=== PATIENT | female | born 1990 | race Two or more races ===

== ENCOUNTER 2025-05-03 15:27 | Inpatient (IN) | payer MEDICAID, OTHER ==
[~2025-05-03] VITALS: Ht 157.5 cm; Wt 67.9 kg
--- NOTE | 2025-05-03 16:19 | ED.PDOC ---
General HPI Comments 34 y.o female with PMHx of kidney stones, presents to the ED for a chief complaint of right sided flank/back pain that started earlier today. Patient reports helping father out today with chores, went to eat and felt a sudden sharp, non radiating pain associated with diaphoresis nausea and vomiting. Patient reports previous similar pain d/t kidney stone diagnosis. She denies any fever, abdominal pain, hematuria or dysuria. Chief Complaint: Flank Pain Time Seen by MD: 16:06 Reviewed notes: Nurses Notes, Medications, Allergies Allergies: Coded Allergies: NO KNOWN ALLERGIES (Unverified , 05/03/25) Information Source: Patient Mode of Arrival: Ambulatory Severity: Moderate Timing: Hours Duration: Since onset Onset: Spontaneous Symptoms: None History of: Kidney stone Location: (R) Flank associated signs and symptoms: Flank Pain, Back Pain Past Medical History PAST MEDICAL HISTORY: Kidney Stones Surgical History: Denies all surgeries MARKETING OFFICER History: No Pertinent MARKETING OFFICER History Family History Family History: Reviewed,noncontributory to illness Social History Smoker: Non-Smoker Alcohol: Denies ETOH Use Drugs: Denies Drug Use Lives In: Home Constitutional: denies: chills, diaphoresis, fatigue, fever, malaise, sweats, weakness, others EENTM: denies: blurred vision, double vision, ear bleeding, ear discharge, ear drainage, ear pain, ear ringing, eye pain, eye redness, hearing loss, mouth pain, mouth swelling, nasal discharge, nose bleeding, nose congestion, nose pain, photophobia, tearing, throat pain, throat swelling, voice changes, others Respiratory: denies: cough, hemoptysis, orthopnea, SOB at rest, shortness of breath, SOB with excertion, stridor, wheezing, others Cardiovascular: denies: chest pain, dizzy spells, diaphoresis, Dyspnea on exert ion, edema, irregular heart beat, left arm pain, lightheadedness, palpitations, PND, syncope, others Gastrointestinal: denies: abdomen distended, abdominal pain, blood streaked bowels, constipated, diarrhea, dysphagia, difficulty swallowing, hematemesis, melena, nausea, poor appetite, poor fluid intake, rectal bleeding, rectal pain, vomiting, others Genitourinary: reports: flank pain; denies: abnormal vagina bleeding, burning, dyspareunia, dysuria, frequency, hematuria, incontinence, pain, , vagina discharge, urgency, others Neurological: denies: dizziness, fainting, headache, left sided numbness, left sided weakness, numbness, paresthesia, pre-existing deficit, right sided numbness, right sided weakness, seizure, speech problems, tingling, tremors, weakness, others Musculoskeletal: reports: back pain; denies: gout, joint pain, joint swelling, muscle pain, muscle stiffness, neck pain, others Integumetry: denies: bruises, change in color, change in hair/nails, dryness, laceration, lesions, lumps, rash, wounds, others Allergic/Immunocompromised: denies: Difficulty Healing, Frequent Infections, Hives, Itching, others Hematologic/Lymphatic: denies: anemia, blood clots, easy bleeding, easy bruising, swollen glands, others Endocrine: denies: excessive hunger, excessive sweating, excessive thirst, excessive urination, flushing, intolerance to cold, intolerance to heat, unexplained weight gain, unexplained weight loss, others Psychiatric: denies: anxiety, bipolar disorder, depression, hopeless, panic disorder, schizophrenia, sleepless, suicidal, others All Other Systems: Reviewed and Negative Physical Exam General Appearance: Severe Distress, Other (diaphoretic ) HEENT: Normal ENT Inspection, Pharynx Normal, TMs Normal Neck: Full Range of Motion, Non-Tender, Normal, Normal Inspection Respiratory: Chest Non-Tender, Lungs Clear, No Accessory Muscle Use, No Respiratory Distress, Normal Breath Sounds Cardiovascular: No Edema, No JVD, No Murmur, No Gallop, Normal Peripheral Pulses, Regular Rate/Rhythm Breast Exam: Deferred Gastrointestinal: No Organomegaly, Non Tender, No Pulsatile Mass, Normal Bowel Sounds, Soft Genitalia: Deferred Pelvic: Deferred Rectal: Deferred Extremities: Tender (right sided: back and flank ) Musculoskeletal : Location: Right Extremity Location: Back Apperance: Tenderness: Severe Neurologic: Alert, director of nurses registry II-XII nml as Tested, No Motor Deficits, Normal Affect, Normal Mood, No Sensory Deficits Cerebellar Function: Normal Reflexes: Normal Skin: Dry, Normal Color, Warm Lymphatic: No Adenopathy Was a procedure done? Was a procedure done?: No Differential Diagnosis Kidney stone (Female): Musculoskeletal pain, Ovarian torsion, Pyelonephritis, Renal failure, Strain, Urinary obstruction X-Ray, Labs, Meds, VS Vital Signs Date Time Temp Pulse Resp B/P (MAP) Pulse Ox O2 Delivery O2 Flow Rate FiO2 05/03/25 15:29 97.1 84 20 148/85 (106) 95 97.1 Lab Test 05/03/25 16:38 05/03/25 16:00 Range/Units White Blood Count 11.2 H 4.4-10.8 10^3/uL Red Blood Count 4.78 4.0-5.20 10^6/uL Hemoglobin 13.4 12.2-16.2 g/dL Hematocrit 40.4 36.0-46.0 % Mean Corpuscular Volume 84.5 80.0-100.0 fL Mean Corpuscular Hemoglobin 28.0 28.0-32.0 pg Mean Corpuscular Hemoglobin Concent 33.1 32.0-36.0 g/dL Red Cell Distribution Width 14.4 H 11.8-14.3 % Platelet Count 348 140-450 10^3/uL Mean Platelet Volume 8.6 6.9-10.8 fL Neutrophils (%) (Auto) 83.3 H 37.0-80.0 % Lymphocytes (%) (Auto) 10.7 10.0-50.0 % Monocytes (%) (Auto) 5.4 0.0-12.0 % Eosinophils (%) (Auto) 0.2 0.0-7.0 % Basophils (%) (Auto) 0.4 0.0-2.0 % Neutrophils # (Auto) 9.3 H 1.6-8.6 10 ^3/uL Lymphocytes # (Auto) 1.2 0.4-5.4 10 ^3/uL Monocytes # (Auto) 0.6 0-1.3 10 ^3/uL Eosinophils # (Auto) 0 0-0.8 10 ^3/uL Basophils # (Auto) 0 0-0.2 10 ^3/uL Nucleated Red Blood Cells 0.1 % Sodium Level Pending Potassium Level Pending Chloride Level Pending Carbon Dioxide Level Pending Anion Gap Pending Blood Urea Nitrogen Pending Creatinine Pending Glomerular Filtration Rate Calc Pending BUN/Creatinine Ratio Pending Serum Glucose Pending Calcium Level Pending Urine Color Pending Urine Clarity Pending Urine pH Pending Urine Specific [place] Pending Urine Protein Pending Urine Ketones Pending Urine Blood Pending Urine Nitrite Pending Urine Bilirubin Pending Urine Urobilinogen Pending Urine Leukocyte Esterase Pending Urine RBC Pending Urine Microscopic WBC Pending Urine Squamous Epithelial Cells Pending Urine Bacteria Pending Urine Glucose Pending Exam: CT CT AB PEL WO CON-NO ORAL OR IV History: right flank pain Comparison Study: None Technique: Multidetector spiral CT of the abdomen and pelvis was performed fr om lung bases to pubic symphysis. Imaging was performed without IV contrast. Axial, coronal and sagittal multiplanar reformats were obtained from the axial data set by the technologist. Radiation dose : Abdomen/Pelvis: CTDIvol 12 mGy, DLP 680 mGy*cm. Findings: Evaluation of solid organs is limited due to lack of intravenous contrast use. Lung Bases: No acute or significant lung base finding. Normal heart size. No pleural or pericardial effusion. Liver: The liver is normal in size. No focal lesions. Gallbladder and biliary Tree: Unremarkable Spleen: Unremarkable Pancreas: The pancreas is grossly normal in appearance. Adrenal Glands: Unremarkable Kidneys: Right kidney is enlarged. There is [id number] right hydronephrosis and hydroureter. No definite obstructing ureteral calculus identified. Left kidney appears unremarkable. Bladder: Grossly unremarkable for degree of distention. Bowel: The stomach is grossly normal in appearance. Small bowel and colon are normal in caliber and distribution. Normal appendix is visualized in the right lower quadrant without findings of appendicitis. Ascites: Trace free fluid in the pelvis could be physiologic. Lymphadenopathy: No mesenteric, retroperitoneal or periportal lymphadenopathy. Abdominal wall and Mesentery: Unremarkable. Vasculature: The visualized abdominal aorta is normal in size and caliber. Evaluation of abdominal and pelvic vessels is limited due to lack of intravenous contrast. Pelvic Organs: Unremarkable Musculoskeletal: No aggressive focal bony lesions, acute fractures or dislocation. IMPRESSION: 1. Abnormal appearance of the right kidney. Right kidney appears swollen with [id number] right hydronephrosis and hydroureter. No definite obstructing calculus identified. Consider pyelonephritis. Recommend further evaluation with CT urogram. Radiation optimization: All CT scans at this facility use at least one of these dose optimization techniques: Automated exposure control mA and/or kV adjustment per patient size (includes targeted exams where dose is matched to clinical indication) or iterative reconstruction. HS:Y X-Ray, Labs, Meds, VS Comment Imaging: X-rays and CT scans were reviewed and interpreted by this provider, concerns of the right kidney. Pending radiology review CT abdomen pelvis: IMPRESSION: 1. Abnormal appearance of the right kidney. Right kidney appears swollen with [id number] right hydronephrosis and hydroureter. No definite obstructing calculus identified. Consider pyelonephritis. Recommend further evaluation with CT urogram. Laboratory: Labs reviewed and interpreted by this provider. Elevated white count Patient has prior medical visits reviewed. Med reconciliation performed Vital signs reviewed Recommend admission for pyelonephritis, rule out obstruction Patient will be started on ceftriaxone 1 g IV Patient given morphine four Zofran four for pain control Time of 1ST Reevaluation: 17:00 Reevaluation 1ST: Unchanged Patient Education/Counseling: Diagnosis, Treatment, Prognosis Family Education/Counseling: No Family Present SEPSIS Sepsis Screen Physician Orders Basic Metabolic Panel (05/03/25 16:18) Urinalysis (05/03/25 16:18) Ct Ab Pel Wo Con-No Oral Or Iv (05/03/25 16:18) Morphine Sulfate Injection (05/03/25 17:00) Ondansetron Hcl (Zofran) (05/03/25 17:00) Ceftriaxone Ivpb Rocephin (05/03/25 17:00) Vital Signs Date Time Temp Pulse Resp B/P (MAP) Pulse Ox O2 Delivery O2 Flow Rate FiO2 05/03/25 15:29 97.1 84 20 148/85 (106) 95 97.1 Laboratory Tests Test 05/03/25 16:38 White Blood Count 11.2 10^3/uL (4.4-10.8) H Departure 1 Departure Time of Disposition: 17:01 Impression: Primary Impression: Pyelonephritis Disposition: 09 ADMITTED INPATIENT Condition: Fair Discharged With: Self Critical Care Note Critical Care Time?: No Stability Stability form required: No I personally scribed for AUDREY WADE CAREER EDUCATION TEACHER ([email or web address]) on 05/03/25 at 16:19. Electronically submitted by Liz Vernon ([facility]). I personally scribed for AUDREY WADE CAREER EDUCATION TEACHER ([email or web address]) on 05/03/25 at 16:59. Electronically submitted by Liz Vernon ([facility]). AUDREY WADE CAREER EDUCATION TEACHER May 03, 2025 16:19
[2025-05-03 16:53] LABS: Urine Bacteria None Seen /hpf (None Seen)
[2025-05-03 16:53] LABS: Basophils # (auto) 0 10 ^3/uL (0-0.2); Basophils % (auto) 0.4 % (0.0-2.0); Eosinophils # (auto) 0 10 ^3/uL (0-0.8); Eosinophils % (auto) 0.2 % (0.0-7.0); Hematocrit 40.4 % (36.0-46.0); Hemoglobin 13.4 g/dL (12.2-16.2); Lymphocytes # (auto) 1.2 10 ^3/uL (0.4-5.4); Lymphocytes % (auto) 10.7 % (10.0-50.0); Mean Corpuscular Hgb Conc. 33.1 g/dL (32.0-36.0); Mean Corpuscular Volume 84.5 fL (80.0-100.0); Monocytes # (auto) 0.6 10 ^3/uL (0-1.3); Monocytes % (auto) 5.4 % (0.0-12.0); Neutrophils # (auto) 9.3 10 ^3/uL (1.6-8.6); Neutrophils % (auto) 83.3 % (37.0-80.0); Nucleated Red Blood Cells % 0.1 %; Platelet Count (auto) 348 10^3/uL (140-450); Red Blood Cells 4.78 10^6/uL (4.0-5.20); Red Cell Distribution Width 14.4 % (11.8-14.3); White Blood Cell 11.2 10^3/uL (4.4-10.8)
--- NOTE | 2025-05-03 16:56 | DVH ---
Exam: CT CT AB PEL WO CON-NO ORAL OR IV History: right flank pain Comparison Study: None Technique: Multidetector spiral CT of the abdomen and pelvis was performed from lung bases to pubic symphysis. Imaging was performed without IV contrast. Axial, coronal and sagittal multiplanar reform ats were obtained from the axial data set by the technologist. Radiation dose : Abdomen/Pelvis: CTDIvol 12 mGy, DLP 680 mGy*cm. Findings: Evaluation of solid organs is limited due to lack of intravenous contrast use. Lung Bases: No acute or significant lung base finding. Normal heart size. No pleural or pericardial effusion. Liver: The liver is normal in size. No focal lesions. Gallbladder and biliary Tree: Unremarkable Spleen: Unremarkable Pancreas: The pancreas is grossly normal in appearance. Adrenal Glands: Unremarkable Kidneys: Right kidney is enlarged. There is [id number] right hydronephrosis and hydroureter. No definite obstructing ureteral calculus identified. Left kidney appears unremarkable. Bladder: Grossly unremarkable for degree of distention. Bowel: The stomach is grossly normal in appearance. Small bowel and colon are normal in caliber and d istribution. Normal appendix is visualized in the right lower quadrant without findings of appendicit is. Ascites: Trace free fluid in the pelvis could be physiologic. Lymphadenopathy: No mesenteric, retroperitoneal or periportal lymphadenopathy. Abdominal wall and Mesentery: Unremarkable. Vasculature: The visualized abdominal aorta is normal in size and caliber. Evaluation of abdominal a nd pelvic vessels is limited due to lack of intravenous contrast. Pelvic Organs: Unremarkable Musculoskeletal: No aggressive focal bony lesions, acute fractures or dislocation. IMPRESSION: 1. Abnormal appearance of the right kidney. Right kidney appears swollen with [id number]-[id number] right hydronephrosis and hydroureter. No definite obstructing calculus identified. Consider pyelonephritis . Recommend further evaluation with CT urogram. Radiation optimization: All CT scans at this facility use at least one of these dose optimization suman hniques: Automated exposure control mA and/or kV adjustment per patient size (includes targeted exams where dose is matched to clinical indication) or iterative reconstruction. HS:Y
[2025-05-03 17:00] LABS: Chloride 105 mmol/L (98-107); Sodium 142 mmol/L (136-145)
[2025-05-03] MEDS: MORPHINE SULFATE 4 MG/ML SYR/VIAL IV ONE (17:00)
[2025-05-03] MEDS: ONDANSETRON HCL 4 MG/2 ML VIAL IV ONE (17:00)
[2025-05-03 17:01] LABS: Anion Gap 11 (5-15); Carbon Dioxide 26 mmol/L (20-31)
[2025-05-03 17:02] LABS: Calcium 10.5 mg/dL (8.7-10.4); Potassium 3.5 mmol/L (3.5-5.1)
[2025-05-03 17:07] LABS: BUN/Creatinine Ratio 11.2 (10.0-20.0); Blood Urea Nitrogen 10 mg/dL (9-23); Glucose 116 mg/dL (74-106)
[2025-05-03 17:09] LABS: Urine Blood 3+ /uL (Negative); Urine Clarity Turbid (Clear); Urine Color Light-Orange (Yellow); Urine Mucus FEW (None Seen); Urine Protein, UAD 1+ (Negative); Urine Specific Gravity 1.025 (1.001-1.035); Urine Squamous Epithelial Cell FEW /hpf (<5); Urine Urobilinogen Normal (Negative); Urine WBC 23 /HPF (0-5)
[2025-05-03] MEDS: ONDANSETRON ODT 4 MG TAB PO ONE (17:38)
[2025-05-03] MEDS: KETOROLAC TROMETH 30 MG/ML 1ML VIAL IM ONE (17:38)
[2025-05-03] MEDS: cefTRIAXone 1GM/50ML D5W 50 ML IV ONE (19:26)
[2025-05-03 21:02] VITALS: PULSE 95; RESP 14; O2SAT 99
[2025-05-03] MEDS ORDERED: ONDANSETRON HCL 4 MG/2 ML VIAL IV PRN (22:00)
[2025-05-03] MEDS ORDERED: MORPHINE SULFATE INJ 2 MG/ml SYRG IV PRN (22:00)
[2025-05-03] MEDS: IBUPROFEN 600 MG TAB PO ONE (22:45)
[2025-05-03] MEDS: SODIUM CHLORIDE 0.9% 1,000 ML IV ONE (22:45)
--- NOTE | 2025-05-03 22:57 | DVH ---
INDICATION: Right CVA tenderness TECHNIQUE: Multiple real-time sonographic images of the kidneys and urinary bladder were obtained. COMPARISON: None FINDINGS: The right kidney measures 9.7 cm in length. The right renal echotexture, contour and cortical thickn ess are within normal limits. There is mild right hydronephrosis. The left kidney measures 8.7 cm in length. The left renal echotexture, contour, and cortical thicknes s are within normal limits. No hydronephrosis or large masses/calculi are seen. The urinary bladder is contracted. Prevoid residual measures 17.2 cc. IMPRESSION: 1. Mild right hydronephrosis.
--- NOTE | 2025-05-03 23:45 | DVHHPRES ---
History of Present Illness Resident Creating Document: LUIS CARLOSJHON RESIDENT History of Present Illness This is a 34-year-old female with a past medical history of kidney stone presented to the ED with a chief complaint of severe abdominal pain. Patient originally from [facility] was visiting the [facility] and reported she was having right-sided lower abdominal pain which was radiating along the flank since the last few days which was xboa-[id number] in intensity and patient is currently on menstruation and she thought that the pain is likely because of the periods. Today when she started to drive back home to [facility], felt sudden onset severe pain starting from the suprapubic area radiating around the right flank to the right upper back. She had associated nausea and multiple episodes of vomiting following which she came to the hospital for further evaluation. Patient reports many years ago she had kidney stones does not exactly remember which kidney. Reports that in the last 2-3 days she has had to strain to urinate. Past medical history: None Past surgical history: None Social history: Patient denies smoking, alcohol, drug No home medications Review of Systems Review of Systems Seen and examined at the bedside Reports of rrrz-if-eqljnnhp right flank and right upper back pain Nausea or vomiting Allergies: Coded Allergies: NO KNOWN ALLERGIES (Unverified , 05/03/25) Medications Current Medications Medications Dose Ordered Sig/Mee Route Start Time Stop Time Status Last Admin Dose Admin Morphine Sulfate 2 mg Q6HPRN PRN IV 05/03/25 22:00 Ibuprofen 600 mg Q6HP PRN PO 05/04/25 04:00 Ondansetron HCl 4 mg Q6HPRN PRN IV 05/03/25 22:00 Ceftriaxone Sodium 50 ml @ 100 mls/hr DAILY@09 IV 05/04/25 09:00 Exam Vital Signs Vital Signs Date Time Temp Pulse Resp B/P (MAP) Pulse Ox O2 Delivery O2 Flow Rate FiO2 05/03/25 21:55 97.8 98 15 127/82 (97) 100 97.8 05/03/25 21:02 Room Air* 0 21 Exam Gen - no pallor, no icterus, no cyanosis, no clubbing, no LAD, no edema . Skin - Patients skin is warm and dry. HEENT - normocephalic, atraumatic, dry mucous membranes. Neck - full ROM, no LAD, no JVD Pulmonary - B/L equal breath sounds, no crackles, no wheezing, no stridor. cardiovascular - regular S1,S2 heard, no added sounds, no murmurs heard. peripheral pulses normal radial 2+, pedal 2+. capillary refill normal <2 secs. GI - soft abdomen with discomfort to deep palpation in the suprapubic area in the right flank area. Positive right CVA tenderness. no hepatospleenomegaly. Bowel sounds normoactive Neurological - Patient is A/O X 3. Bilateral upper extremity strength 5/5, bilateral lower extremity strength 5/5, no facial droop, normal speech, no tremor, no sensory deficiets. Labs/Xrays Labs Test 05/03/25 16:38 05/03/25 16:00 Range/Units White Blood Count 11.2 H 4.4-10.8 10^3/uL Red Blood Count 4.78 4.0-5.20 10^6/uL Hemoglobin 13.4 12.2-16.2 g/dL Hematocrit 40.4 36.0-46.0 % Mean Corpuscular Volume 84.5 80.0-100.0 fL Mean Corpuscular Hemoglobin 28.0 28.0-32.0 pg Mean Corpuscular Hemoglobin Concent 33.1 32.0-36.0 g/dL Red Cell Distribution Width 14.4 H 11.8-14.3 % Platelet Count 348 140-450 10^3/uL Mean Platelet Volume 8.6 6.9-10.8 fL Neutrophils (%) (Auto) 83.3 H 37.0-80.0 % Lymphocytes (%) (Auto) 10.7 10.0-50.0 % Monocytes (%) (Auto) 5.4 0.0-12.0 % Eosinophils (%) (Auto) 0.2 0.0-7.0 % Basophils (%) (Auto) 0.4 0.0-2.0 % Neutrophils # (Auto) 9.3 H 1.6-8.6 10 ^3/uL Lymphocytes # (Auto) 1.2 0.4-5.4 10 ^3/uL Monocytes # (Auto) 0.6 0-1.3 10 ^3/uL Eosinophils # (Auto) 0 0-0.8 10 ^3/uL Basophils # (Auto) 0 0-0.2 10 ^3/uL Nucleated Red Blood Cells 0.1 % Sodium Level 142 136-145 mmol/L Potassium Level 3.5 3.5-5.1 mmol/L Chloride Level 105 98-107 mmol/L Carbon Dioxide Level 26 20-31 mmol/L Anion Gap 11 5-15 Blood Urea Nitrogen 10 9-23 mg/dL Creatinine 0.89 0.550-1.02 mg/dL Glomerular Filtration Rate Calc 88 >90 mL/min BUN/Creatinine Ratio 11.2 10.0-20.0 Serum Glucose 116 H 74-106 mg/dL Calcium Level 10.5 H 8.7-10.4 mg/dL Urine Color Light-orange Yellow Urine Clarity Turbid H Clear Urine pH 6.0 5.0-9.0 Urine Specific [place] 1.025 1.001-1.035 Urine Protein 1+ H Negative Urine Ketones Negative Negative Urine Blood 3+ H Negative /uL Urine Nitrite Negative Negative Urine Bilirubin Negative Negative Urine Urobilinogen Normal Negative mg/dL Urine Leukocyte Esterase 1+ Negative /uL Urine RBC 1972 0 - 4 /hpf Urine Microscopic WBC 23 H 0-5 /HPF Urine Squamous Epithelial Cells Few <5 /hpf Urine Calcium Oxalate Crystals Mod None Seen Urine Bacteria None seen None Seen /hpf Urine Mucus Few None Seen Urine Glucose Normal Normal mg/dL Assessment/Plan Assessment/Plan Acute intractable abdominal pain Urinary tract infection, possible acute pyelonephritis Right hydronephrosis and hydroureter - CT abdomen pelvis without contrast showed right kidney swollen with a nfki-[id number]-osbhacwg right hydronephrosis and hydroureter, no definite obstructing calculus - renal ultrasound showed mild right hydronephrosis - CT urogram is recommended - IV ceftriaxone daily - IV fluids - urine bacterial culture pending Dysmenorrhea - pelvic ultrasound pending Goals of care discussed with the patient for over 23 minutes. Full code Time Spent: 39 minutes Plan discussed with Dr. Dupont Plan discussed with: Patient My Orders Orders - JHON ALDRIDGE RESIDENT Procedure Category Date Status Time Admit ADMIT 05/03/25 Transmitted 21:56 Notify Of Changes ALTAGRACIA 05/03/25 In Process From Base 21:56 Stat Ekg For Chest ALTAGRACIA 05/03/25 In Process Pain 21:56 Kidney US 05/03/25 Resulted 21:56 Pelvic US 05/03/25 Taken 21:56 Sodium Chloride 0.9% PHA 05/03/25 In Process 22:00 Morphine Sulfate PHA 05/03/25 In Process Injection 22:00 Ondansetron Hcl PHA 05/03/25 In Process (Zofran) 22:00 Ceftriaxone 1gm/50ml PHA 05/04/25 In Process D5w (Rocephin) 09:00 Urine Bacterial LUZ 05/03/25 In Process Culture 21:56 Ibuprofen Tablet PHA 05/04/25 In Process (Motrin Tablet) 04:00 Date of Service: May 03, 2025 Common Visit Codes: 84876-FNRUOVE INP/OBS CARE (HIGH) Secondary Visit Codes: 04655-UCXUSTON CARE PLAN 30 MINUTES JHON ALDRIDGE RESIDENT May 03, 2025 23:45
[2025-05-04] MEDS: KETOROLAC TROMETH 30 MG/ML 1ML VIAL IV ONE ×2 (02:28→12:13)
[2025-05-04] MEDS ORDERED: IBUPROFEN 600 MG TAB PO PRN (04:00)
--- NOTE | 2025-05-04 05:55 | DVH ---
INDICATION: dysmenorrhoea TECHNIQUE: Multiple real-time grayscale transabdominal sonographic images along with color and duplex Doppler of the uterus and ovaries were obtained. COMPARISON: None FINDINGS: The uterus measures 6.1 x 3.4 x 3.2 cm cm. The endometrial stripe measures 0.2 cm. Right ovary measures 1.6 x 1.5 x 1.2 cm with normal Doppler color flow Left ovary measures 1.5 x 1.0 x 0.9 cm with normal Doppler color flow IMPRESSION: Ovaries are small in size for a premenopausal patient. Clinical correlation advised.
[2025-05-04 07:31] VITALS: PULSE 79; RESP 16; O2SAT 95
[2025-05-04 08:29] LABS: Basophils # (auto) 0 10 ^3/uL (0-0.2); Basophils % (auto) 0.6 % (0.0-2.0); Eosinophils # (auto) 0 10 ^3/uL (0-0.8); Eosinophils % (auto) 0.4 % (0.0-7.0); Hematocrit 41.2 % (36.0-46.0); Hemoglobin 13.5 g/dL (12.2-16.2); Lymphocytes # (auto) 1.6 10 ^3/uL (0.4-5.4); Lymphocytes % (auto) 26.2 % (10.0-50.0); Mean Corpuscular Hemoglobin 28.1 pg (28.0-32.0); Mean Corpuscular Hgb Conc. 32.9 g/dL (32.0-36.0); Mean Corpuscular Volume 85.5 fL (80.0-100.0); Monocytes # (auto) 0.2 10 ^3/uL (0-1.3); Monocytes % (auto) 4.1 % (0.0-12.0); Neutrophils # (auto) 4.1 10 ^3/uL (1.6-8.6); Neutrophils % (auto) 68.7 % (37.0-80.0); Nucleated Red Blood Cells % 0.1 %; Platelet Count (auto) 342 10^3/uL (140-450); Red Blood Cells 4.81 10^6/uL (4.0-5.20); Red Cell Distribution Width 14.6 % (11.8-14.3)
[2025-05-04 08:51] LABS: Anion Gap 10 (5-15); Carbon Dioxide 27 mmol/L (20-31); Chloride 106 mmol/L (98-107); Sodium 143 mmol/L (136-145)
[2025-05-04 08:52] LABS: Calcium 10.3 mg/dL (8.7-10.4)
[2025-05-04 08:55] LABS: Potassium 3.3 mmol/L (3.5-5.1)
[2025-05-04 08:56] LABS: Glucose 90 mg/dL (74-106)
[2025-05-04 08:57] LABS: BUN/Creatinine Ratio 13.2 (10.0-20.0); Blood Urea Nitrogen 10 mg/dL (9-23)
[2025-05-04] MEDS: cefTRIAXone 1GM/50ML D5W 50 ML IV SCH (09:00)
--- NOTE | 2025-05-04 16:56 | DVHDSRES ---
Discharge Summary Date of Admission Resident Creating Document: GARTH LINDSEY RESIDENT May 03, 2025 at 21:56 Date of Discharge: May 04, 2025 Labs/Diagnostic Data: Laboratory Results Test 05/04/25 08:19 05/03/25 16:00 White Blood Count 6.0 10^3/uL (4.4-10.8) Red Blood Count 4.81 10^6/uL (4.0-5.20) Hemoglobin 13.5 g/dL (12.2-16.2) Hematocrit 41.2 % (36.0-46.0) Mean Corpuscular Volume 85.5 fL (80.0-100.0) Mean Corpuscular Hemoglobin 28.1 pg (28.0-32.0) Mean Corpuscular Hemoglobin Concent 32.9 g/dL (32.0-36.0) Red Cell Distribution Width 14.6 % (11.8-14.3) Platelet Count 342 10^3/uL (140-450) Mean Platelet Volume 8.7 fL (6.9-10.8) Neutrophils (%) (Auto) 68.7 % (37.0-80.0) Lymphocytes (%) (Auto) 26.2 % (10.0-50.0) Monocytes (%) (Auto) 4.1 % (0.0-12.0) Eosinophils (%) (Auto) 0.4 % (0.0-7.0) Basophils (%) (Auto) 0.6 % (0.0-2.0) Neutrophils # (Auto) 4.1 10 ^3/uL (1.6-8.6) Lymphocytes # (Auto) 1.6 10 ^3/uL (0.4-5.4) Monocytes # (Auto) 0.2 10 ^3/uL (0-1.3) Eosinophils # (Auto) 0 10 ^3/uL (0-0.8) Basophils # (Auto) 0 10 ^3/uL (0-0.2) Nucleated Red Blood Cells 0.1 % Sodium Level 143 mmol/L (136-145) Potassium Level 3.3 mmol/L (3.5-5.1) Chloride Level 106 mmol/L (98-107) Carbon Dioxide Level 27 mmol/L (20-31) Anion Gap 10 (5-15) Blood Urea Nitrogen 10 mg/dL (9-23) Creatinine 0.76 mg/dL (0.550-1.02) Glomerular Filtration Rate Calc 106 mL/min (>90) BUN/Creatinine Ratio 13.2 (10.0-20.0) Serum Glucose 90 mg/dL (74-106) Calcium Level 10.3 mg/dL (8.7-10.4) Urine Color Light-orange (Yellow) Urine Clarity Turbid (Clear) Urine pH 6.0 (5.0-9.0) Urine Specific [place] 1.025 (1.001-1.035) Urine Protein 1+ (Negative) Urine Ketones Negative (Negative) Urine Blood 3+ /uL (Negative) Urine Nitrite Negative (Negative) Urine Bilirubin Negative (Negative) Urine Urobilinogen Normal mg/dL (Negative) Urine Leukocyte Esterase 1+ /uL (Negative) Urine RBC 1972 /hpf (0 - 4) Urine Microscopic WBC 23 /HPF (0-5) Urine Squamous Epithelial Cells Few /hpf (<5) Urine Calcium Oxalate Crystals Mod (None Seen) Urine Bacteria None seen /hpf (None Seen) Urine Mucus Few (None Seen) Urine Glucose Normal mg/dL (Normal) Other Laboratory Tests 05/04/25 08:19 Brief Hx & Hospital Course: This is a 34-year-old female with a past medical history of kidney stone presented to the ED with a chief complaint of severe abdominal pain. Patient originally from [facility] was visiting the [facility] and reported she was having right-sided lower abdominal pain which was radiating along the flank since the last few days which was [id number] in intensity and patient is currently on menstruation and she thought that the pain is likely because of the periods. Today when she started to drive back home to [facility], felt sudden onset severe pain starting from the suprapubic area radiating around the right flank to the right upper back. She had associated nausea and multiple episodes of vomiting following which she came to the hospital for further evaluation. Patient reports many years ago she had kidney stones does not exactly remember which kidney. Reports that in the last 2-3 days she has had to strain to urinate. Past medical history: None Past surgical history: None Social history: Patient denies smoking, alcohol, drug No home medications During the hospitalization, patient was diagnosed with possible acute pyelonephritis acute cystitis, right hydronephrosis based on CT findings of right kidney swelling with [id number] right hydronephrosis and hydroureter. CT urogram was ordered, patient was started on IV Azeem IV ceftriaxone. Tobacco Sorter factor culture was ordered. Patient left AMA during ongoing evaluation. He was encouraged to stay for further medical management and was advised the risk of leaving AMA, patient expressed understanding. Operations or Procedures Exam: CT CT AB PEL WO CON-NO ORAL OR IV History: right flank pain Comparison Study: None Technique: Multidetector spiral CT of the abdomen and pelvis was performed from lung bases to pubic symphysis. Imaging was performed without IV contrast. Axial, coronal and sagittal multiplanar reformats were obtained from the axial data set by the technologist. Radiation dose : Abdomen/Pelvis: CTDIvol 12 mGy, DLP 680 mGy*cm. Findings: Evaluation of solid organs is limited due to lack of intravenous contrast use. Lung Bases: No acute or significant lung base finding. Normal heart size. No pleural or pericardial effusion. Liver: The liver is normal in size. No focal lesions. Gallbladder and biliary Tree: Unremarkable Spleen: Unremarkable Pancreas: The pancreas is grossly normal in appearance. Adrenal Glands: Unremarkable Kidneys: Right kidney is enlarged. There is [id number] right hydronephrosis and hydroureter. No definite obstructing ureteral calculus identified. Left kidney appears unremarkable. Bladder: Grossly unremarkable for degree of distention. Bowel: The stomach is grossly normal in appearance. Small bowel and colon are normal in caliber and distribution. Normal appendix is visualized in the right lower quadrant without findings of appendicitis. Ascites: Trace free fluid in the pelvis could be physiologic. Lymphadenopathy: No mesenteric, retroperitoneal or periportal lymphadenopathy. Abdominal wall and Mesentery: Unremarkable. Vasculature: The visualized abdominal aorta is normal in size and caliber. Evaluation of abdominal and pelvic vessels is limited due to lack of intravenous contrast. Pelvic Organs: Unremarkable Musculoskeletal: No aggressive focal bony lesions, acute fractures or dislocation. IMPRESSION: 1. Abnormal appearance of the right kidney. Right kidney appears swollen with [id number] right hydronephrosis and hydroureter. No definite obstructing calculus identified. Consider pyelonephritis. Recommend further evaluation with CT urogram. Radiation optimization: All CT scans at this facility use at least one of these dose optimization techniques: Automated exposure control mA and/or kV adjustment per patient size (includes targeted exams where dose is matched to clinical indication) or iterative reconstruction. HS:Y ATED BY: ELIESER PATEL MD DICTATED DATE/TIME: 05/03/251653 SIGNED BY: ELIESER PATEL MD SIGNED DATE/TIME: 05/03/251653 CC: Condition at Discharge: Undetermined Final Diagnosis/Problems List Acute intractable abdominal pain Urinary tract infection, possible acute pyelonephritis Right hydronephrosis and hydroureter Dysmenorrhea Hypokalemia Discharge Disposition: AMA Discharge Statement: "Patient was advised to return to the ER or call 911 if any headaches, dizziness, shortness of breath, chest pain, abdominal pain, bleeding, fevers, or worsening of medical condition. Patient was counseled about treatment plan, medications, possible side effects, patientverbalized understanding. All questions were answered to the best of my ability. This discharge took greater then 30 minutes in planning, reviewing documentation, counseling the patient, and discussing with other team members." ASSESSMENT ASSESSMENT Assessment GARTH LINDSEY RESIDENT May 04, 2025 16:56
== END 2025-05-04 12:26 | disposition left against medical advice (07) | DRG 463 ==
LOC: ER 15:31 → OVERFLOW 21:56
PROVIDERS: ADMIT Student in an Organized Health Care Education/Training Program; ATTEND Nurse Practitioner Family
DX: N13.6 Pyonephrosis (principal); E87.6 Hypokalemia; N94.6 Dysmenorrhea, unspecified; Z53.29 Procedure and treatment not carried out because of patient's decision for other reasons; Z87.442 Personal history of urinary calculi
CPT/HCPCS: 36415; 74176; 76775; 76856; 80048; 81001; 85025; 87086; 96365; 96372; G0378; J1885; Q0162